=== PATIENT | male | born 1945 | race Caucasian/White ===

== ENCOUNTER → 2025-06-11 14:30 | Outpatient (REF) | payer MEDICARE, OTHER, SELFPAY | LOC: MRI 14:30 | PROVIDERS: ATTENDING PHYSICIAN Internal Medicine Transplant Hepatology; FAMILY PHYSICIAN Internal Medicine Endocrinology, Diabetes & Metabolism | DX: K76.0 Fatty (change of) liver, not elsewhere classified (principal) | CPT/HCPCS: 76391 ==